=== PATIENT | male | born 1940 | race Hispanic/Latino ===

== ENCOUNTER 2019-08-07 14:58 | Emergency (ER) | payer MEDICARE | END 2019-08-07 16:16 | disposition home or self-care (01) | LOC: EDH 14:58 | DX: Z46.6 Encounter for fitting and adjustment of urinary device (principal); I10 Essential (primary) hypertension | CPT/HCPCS: 99281 ==

== ENCOUNTER 2019-09-08 06:29 | Observation (INO) | payer MEDICARE ==
[2019-09-05 11:25] VITALS: BP 127/80
[2019-09-05 12:30] LABS: BASOPHILS % (AUTO) 0.6 % (0.0-5.0); EOSINOPHILS % (AUTO) 1.1 % (0.0-8.0); HEMATOCRIT 39.5 % (42-54); LYMPHOCYTES % (AUTO) 18.2 % (21.0-51.0); MEAN CORPUSCULAR HEMOGLOBIN 29.8 pg (27.0-33.0); MEAN CORPUSCULAR HGB CONC 33.2 g/dL (32.0-36.0); MEAN CORPUSCULAR VOLUME 89.9 fL (79-99); MONOCYTES % (AUTO) 6.3 % (3.0-13.0); NEUTROPHILS % (AUTO) 73.8 % (40.0-77.0); PLATELET COUNT (AUTO) 262 K/uL (130-400); RED CELL DISTRIBUTION WIDTH 14.6 % (11.0-15.5); WHITE BLOOD COUNT (AUTO) 10.5 K/uL (4.8-10.8)
[2019-09-05 12:45] LABS: POTASSIUM 5.1 mmol/L (3.5-5.1)
[2019-09-05 12:49] LABS: INR 1.01 (0.85-1.15); PARTIAL THROMBOPLASTIN TIME 27.1 SEC (26.3-35.5); PROTHROMBIN TIME 10.6 SEC (9.6-11.6)
[2019-09-05 13:11] LABS: APPEARANCE,URINE TURBID (CLEAR); BILIRUBIN,URINE NEGATIVE (NEGATIVE); COLOR,URINE YELLOW (YELLOW); GLUCOSE, URINE (UA) NEGATIVE (NEGATIVE); KETONES,URINE NEGATIVE (NEGATIVE); LEUKOCYTE ESTERASE ,URINE LARGE (NEGATIVE); NITRATE,URINE POSITIVE (NEGATIVE); OCCULT BLOOD,URINE TRACE-INTACT (NEGATIVE); PH,URINE 8.5 (5.0-8.0); PROTEIN,URINE TRACE mg/dL (NEGATIVE)
[2019-09-05 13:34] LABS: BACTERIA,URINE Many /HPF (None Seen); SQUAMOUS EPITHELIAL CELL,UR Rare /HPF (0-2); WBC,URINE >100 /HPF (0-1)
[2019-09-05 13:35] LABS: AMORPHOUS SEDIMENT,UR Few /LPF (None Seen); MUCUS,URINE Few LPF (None Seen); TRIPLE PHOSPHATE CRYSTAL,UR Moderate /LPF (None Seen)
--- NOTE | 2019-09-07 15:20 | NUR ---
ABNORMAL LABS/EKG ABNORMAL UA, URINE CULTURE,CXR FAXED TO DR. QUEZADA'S OFFICE, ATTN TO ERLIN. WAITING STRATEGY INTERN BACK. ABNORMAL EKG REPORTED TO DR. MARTELL.
--- NOTE | 2019-09-07 15:28 | NUR ---
EKG NO FURTHER ORDERS FROM DR. MARTELL, MAY PROCEED WITH PLANNED PROCEDURE.
--- NOTE | 2019-09-07 15:56 | NUR ---
ABNORMAL LABS CALL BACK FROM DR. QUEZADA'S OFFICE. NO FURTHER ORDERS GIVEN. PT ON LEVAQUIN. MAY PROCEED WITH PLANNED PROCEDURE.
[2019-09-08] VITALS (22 sets, daily range): BP systolic 99–160; BP diastolic 49–89
[~2019-09-08] VITALS: Ht 166.4 cm; Wt 119.3 kg
[2019-09-08] MEDS: CEFTRIAXONE SODIUM 1 GM IVP SCH ×2 (05:00→08:50)
[2019-09-08] MEDS: GENTAMICIN SULFATE IV SCH ×2 (05:00→08:45)
[2019-09-08] MEDS: SODIUM CHLORIDE 0.9% IV SCH ×2 (05:00→08:45)
[~2019-09-08 06:29] MED LIST: ATOR10TA69 PO; ENAL2.5T PO; FURO20TA4 PO; LEVOFLOXACIN PO; METO25TA6 PO; POTA20TA82 PO; TAMS-1 PO
[2019-09-08] MEDS ORDERED: LACTATED RINGERS 1000ML 1,000 ML IV ONE (07:06)
[2019-09-08] MEDS ORDERED: GENTAMICIN 80 MG/NS 100 ML PB 0 ML IV ONE (07:06)
[2019-09-08] MEDS ORDERED: LIDOCAINE PF 2% 5ML ABBOJECT ONE (07:54)
[2019-09-08] MEDS ORDERED: PROPOFOL 10 MG/ML 20ML VIAL IV ONE (07:54)
[2019-09-08] MEDS ORDERED: FENTANYL CITRATE PF 50 MCG/1 ML 2ML VIAL ONE (07:54)
[2019-09-08] MEDS ORDERED: EPHEDRINE SULFATE 50 MG/ML AMPULE ONE (09:09)
[2019-09-08] MEDS ORDERED: PHENYLEPHRINE HCL 10 MG/ML 1ML VIAL IV ONE (09:44)
[2019-09-08] MEDS ORDERED: SODIUM CHLORIDE 0.9% 10 ML VIAL ONE (09:44)
[2019-09-08] MEDS ORDERED: ONDANSETRON HCL 4 MG/2 ML VIAL IVP PRN (11:45)
[2019-09-08] MEDS ORDERED: TRAMADOL HCL 50 MG TABLET PO PRN (11:45)
[2019-09-08] MEDS ORDERED: OPIUM/BELLADONNA ALKALOIDS 1 EACH SUPP.RECT RC PRN (11:45)
--- NOTE | 2019-09-08 18:27 | NUR ---
C/O OF SWOLLEN LEFT SIDE OF LIP CALLED OR TO MAKE DR QUEZADA AWARE, HE IS CURRENTLY IN SURGERY. ANESTHESIA TO COME AND SEE PATIENT. VITAL SIGNS ARE STABLE, NO SIGNS OF AIRWAY OBSTRUCTION.
[2019-09-08] MEDS: BACITRACIN 28.4 GM OINT TP SCH (21:14)
[2019-09-08] MEDS: DOCUSATE SODIUM 100 MG CAP PO SCH (21:14)
[2019-09-08] MEDS ORDERED: SODIUM CHLORIDE 0.9% 500ML 500 ML IV ONE (21:19)
[2019-09-09] VITALS: BP 118/61
[2019-09-09 04:11] VITALS: BP 107/59
[2019-09-09] MEDS: SODIUM CHLORIDE 0.9% IV SCH (05:00)
[2019-09-09] MEDS: GENTAMICIN SULFATE IV SCH (05:00)
[2019-09-09] MEDS: CEFTRIAXONE SODIUM 1 GM IVP SCH ×2 (05:00→15:24)
[2019-09-09 08:00] VITALS: BP 112/64
[2019-09-09] MEDS ORDERED: CEFTRIAXONE SODIUM 1 GM IVP SCH (08:00)
[2019-09-09] MEDS: BACITRACIN 28.4 GM OINT TP SCH (09:00)
[2019-09-09] MEDS ORDERED: PANTOPRAZOLE SODIUM 40 MG TABLET.DR PO SCH (09:00)
[2019-09-09] MEDS: DOCUSATE SODIUM 100 MG CAP PO SCH (10:25)
[2019-09-09 11:37] VITALS: BP 112/65
--- NOTE | 2019-09-09 16:13 | NUR ---
PT D/C SAFELY Pt cleared for d/c by Dr. Mcmahan, 3 way CBI clear with no hematuria or blood clot noted, 1gm Rocephin IVP given before d/c, pt tolerated well, No c/o pain, pt to follow up with Dr. Mcmahan on 09/12/19 @ 09:15am. [address] way CBI changed to a leg bag, Pt education provided on gaines care with aseptic technique, Pt verbalized understanding of d/c instruction, All questions and concerns answered. Pt finally d/c safely accompanied by family members.
== END 2019-09-09 16:15 | disposition home or self-care (01) ==
LOC: DAH 06:29 → 3BH 06:30 → DAH 06:30
PROVIDERS: ADMIT Urology; ATTEND Urology
DX: N40.1 Benign prostatic hyperplasia with lower urinary tract symptoms (principal); R33.8 Other retention of urine; I10 Essential (primary) hypertension; I25.10 Atherosclerotic heart disease of native coronary artery without angina pectoris; N21.0 Calculus in bladder; Z95.1 Presence of aortocoronary bypass graft
CPT/HCPCS: 36415; 52601; 71045; 80048; 81001; 85025; 85610; 85730; 87077; 87088; 87186; 88307; 93005; 96374; 96376; A4215; A4221; A4222; A4223 ×2; A4354; A4358; A4600; A4663; A4930; A6260; C1758; G0378 ×30; J0696 ×3; J1580 ×2; J2001; J2370; J2704; J3010; J3490; J7030; J7040; J7120; 96365

== ENCOUNTER 2021-11-17 06:50 | Emergency (ER) | payer MEDICARE ==
[~2021-11-17] VITALS: Ht 167.6 cm; Wt 115.7 kg
[~2021-11-17 06:50] MED LIST changes: -ENAL2.5T PO; +ENAL2.5T16 PO; -LEVOFLOXACIN PO; +POTA-202 PO; -POTA20TA82 PO
[2021-11-17] MEDS ORDERED: ORPHENADRINE CITRATE 30 MG/ML ML IV ONE (08:00)
[2021-11-17] MEDS ORDERED: KETOROLAC 15MG/ML VIAL (15MG/ML) IV ONE (08:00)
[2021-11-17] MEDS ORDERED: 0.9%NACL 1000ML 1,000 ML IV ONE (08:00)
[2021-11-17 08:25] LABS: BASOPHILS % (AUTO) 0.4 % (0.0-5.0); EOSINOPHILS % (AUTO) 0.8 % (0.0-8.0); HEMATOCRIT 40.1 % (42-54); LYMPHOCYTES % (AUTO) 24.8 % (21.0-51.0); MEAN CORPUSCULAR HEMOGLOBIN 30.9 pg (27.0-33.0); MEAN CORPUSCULAR HGB CONC 33.4 g/dL (32.0-36.0); MEAN CORPUSCULAR VOLUME 92.4 fL (79-99); NEUTROPHILS % (AUTO) 66.6 % (40.0-77.0); PLATELET COUNT (AUTO) 174 K/uL (130-400); RED BLOOD CELL COUNT(AUTO) 4.34 MIL/uL (4.50-6.20); RED CELL DISTRIBUTION WIDTH 13.1 % (11.0-15.5); WHITE BLOOD COUNT (AUTO) 7.4 K/uL (4.8-10.8)
[2021-11-17 08:29] LABS: APPEARANCE,URINE Cloudy (CLEAR); BILIRUBIN,URINE Negative (NEGATIVE); COLOR,URINE Yellow (YELLOW); GLUCOSE, URINE (UA) Negative (NEGATIVE); KETONES,URINE Negative (NEGATIVE); LEUKOCYTE ESTERASE ,URINE Large (NEGATIVE); NITRATE,URINE Positive (NEGATIVE); OCCULT BLOOD,URINE Negative (NEGATIVE); PH,URINE 7.5 (5.0-8.0); PROTEIN,URINE Negative (NEGATIVE)
[2021-11-17 08:33] LABS: CARBON DIOXIDE 27 mmol/L (21-32); CHLORIDE 104 mmol/L (101-111); CREATININE 0.9 mg/dL (0.5-1.5); GLOMERULAR FILTR. RATE CALC 86 mL/min (>60); GLUCOSE,RANDOM 103 mg/dL (70-105); POTASSIUM 3.9 mmol/L (3.5-5.1); SODIUM SERUM 138 mmol/L (136-145); UREA NITROGEN, BLOOD 18 mg/dL (7-18)
[2021-11-17 08:37] LABS: ALANINE AMINOTRANSFERASE 21 U/L (12-78); ALBUMIN 3.3 g/dL (3.5-5.0); ASPARTATE AMINOTRANSFERASE 18 U/L (10-37); BILIRUBIN,TOTAL 0.7 mg/dL (0.2-1.0); TOTAL PROTEIN, SERUM 7.2 g/dL (6.0-8.3)
[2021-11-17 08:41] LABS: LIPASE < 50 U/L (114-286)
[2021-11-17 09:01] LABS: BACTERIA,URINE Moderate /HPF (None Seen); SQUAMOUS EPITHELIAL CELL,UR Few /HPF (0-2); WBC,URINE 51-100 /HPF (0-1)
[2021-11-17 09:03] LABS: RBC,URINE None Seen /HPF (0-1)
[2021-11-17] MEDS ORDERED: CEFTRIAXONE 1G VIAL IVP ONE (09:30)
[2021-11-17] MEDS ORDERED: CEPH500B PO (09:53)
[2021-11-17] MEDS ORDERED: MELO7.5T12 PO (09:53)
[2021-11-17] MEDS ORDERED: ORPH-43 PO (09:53)
[2021-11-17] MEDS ORDERED: LIDOP TP (09:53)
[2021-11-17 10:07] VITALS: BP 173/82
== END 2021-11-17 10:15 | disposition home or self-care (01) ==
LOC: EDH 06:50
DX: N39.0 Urinary tract infection, site not specified (principal); M62.838 Other muscle spasm; E78.00 Pure hypercholesterolemia, unspecified; I10 Essential (primary) hypertension; Z79.1 Long term (current) use of non-steroidal anti-inflammatories (NSAID); Z79.899 Other long term (current) drug therapy
CPT/HCPCS: 36415; 74176; 80053; 81001; 83690; 84484; 85025; 87077; 87088; 87186; 93005; 93971; 96361; 96374; 96375; 99285; J0696; J1885; J2360; J7030

== ENCOUNTER 2022-08-12 07:56 | Inpatient (IN) | payer MEDICARE ==
[~2022-08-12] VITALS: Ht 167.6 cm; Wt 111.0 kg
[~2022-08-12 07:56] MED LIST changes: +CEPH500B PO; +LIDOP TP; +MELO7.5T12 PO; +ORPH-43 PO
[2022-08-12] MEDS ORDERED: ACETAMINOPHEN 500 MG TABLET ONE (08:15)
[2022-08-12 08:16] LABS: BASOPHILS % (AUTO) 0.2 % (0.0-5.0); HEMATOCRIT 40.1 % (42-54); LYMPHOCYTES % (AUTO) 7.4 % (21.0-51.0); MEAN CORPUSCULAR HEMOGLOBIN 30.8 pg (27.0-33.0); MEAN CORPUSCULAR HGB CONC 33.7 g/dL (32.0-36.0); MEAN CORPUSCULAR VOLUME 91.3 fL (79-99); MONOCYTES % (AUTO) 9.8 % (3.0-13.0); PLATELET COUNT (AUTO) 176 K/uL (130-400); RED BLOOD CELL COUNT(AUTO) 4.39 MIL/uL (4.50-6.20); RED CELL DISTRIBUTION WIDTH 13.4 % (11.0-15.5); WHITE BLOOD COUNT (AUTO) 14.5 K/uL (4.8-10.8)
[2022-08-12] MEDS ORDERED: ACETAMINOPHEN 500 MG TABLET PO ONE (08:30)
[2022-08-12 08:41] LABS: CREATININE 1.1 mg/dL (0.5-1.5); POTASSIUM 3.4 mmol/L (3.5-5.1)
[2022-08-12 08:45] LABS: INR 1.06 (0.85-1.15); PROTHROMBIN TIME 11.5 SEC (9.6-11.6)
[2022-08-12 08:46] LABS: ALBUMIN 3.1 g/dL (3.5-5.0); PARTIAL THROMBOPLASTIN TIME 31.9 SEC (26.3-35.5); TOTAL PROTEIN, SERUM 7.8 g/dL (6.0-8.3)
[2022-08-12 08:50] LABS: B-TYPE NATRIURETIC PEPTIDE 59 pg/mL (0-100)
[2022-08-12] MEDS ORDERED: POTASSIUM BICARB/CIT AC 25 MEQ TABLET.EFF PO STA (09:45)
[2022-08-12 10:42] LABS: APPEARANCE,URINE CLOUDY (CLEAR); BILIRUBIN,URINE NEGATIVE (NEGATIVE); COLOR,URINE YELLOW (YELLOW); GLUCOSE, URINE (UA) NEGATIVE (NEGATIVE); KETONES,URINE 10 mg/dL (NEGATIVE); LEUKOCYTE ESTERASE ,URINE 500 Leu/uL (NEGATIVE); NITRATE,URINE NEGATIVE (NEGATIVE); OCCULT BLOOD,URINE SMALL (NEGATIVE); PH,URINE 5.5 (5.0-8.0); PROTEIN,URINE 30 mg/dL (NEGATIVE); UROBILINOGEN,URINE 0.2 mg/dL (0.2-1.0)
[2022-08-12 10:45] LABS: BACTERIA,URINE FEW /HPF (None Seen); MUCUS,URINE RARE LPF (None Seen); SQUAMOUS EPITHELIAL CELL,UR RARE /HPF (0-2); WBC,URINE 26-50 /HPF (0-1)
[2022-08-12] MEDS: CEFTRIAXONE 1G VIAL IVP STA ×2 (13:22→13:32)
[2022-08-12] MEDS: AZITHROMYCIN 500MG+NS 250ML IVPB SCH (13:32)
[2022-08-12] MEDS: CEFTRIAXONE 1G VIAL IVP SCH (14:00)
[2022-08-12] MEDS ORDERED: AZITHROMYCIN 500MG+NS 250ML IVPB SCH (14:00)
[2022-08-12] MEDS ORDERED: ACETAMINOPHEN WITH CODEINE 1 TAB TAB PO PRN (14:30)
[2022-08-12] MEDS ORDERED: ACETAMINOPHEN 325 MG TAB PO PRN ×2 (14:30)
[2022-08-12] MEDS ORDERED: ONDANSETRON 4MG INJ IV PRN (14:30)
[2022-08-12] MEDS ORDERED: POTASSIUM CHLORIDE 20MEQ/100ML 100 ML IV PRN (14:30)
[2022-08-12] MEDS ORDERED: NITROGLYCERIN 0.4 MG SL TAB SL PRN (14:30)
[2022-08-12] MEDS ORDERED: LIDOCAINE HCL-MPF 1% 2ML VIAL IV PRN (14:30)
[2022-08-12] MEDS ORDERED: CEFTRIAXONE 1G VIAL IV SCH (14:30)
[2022-08-12] MEDS ORDERED: ZOLPIDEM TARTRATE 5 MG TAB PO PRN (14:30)
[2022-08-12] MEDS ORDERED: POTASSIUM CHLORIDE 10% ELIXIR 20 MEQ/15 ML UDCUP PO PRN (14:30)
[2022-08-12] MEDS ORDERED: GUAIFENESIN-DM 200/20 MG 10 ML PO PRN (14:30)
[2022-08-12] MEDS ORDERED: AZITHROMYCIN 500MG+NS 250ML 250 ML IV SCH (14:30)
[2022-08-12] MEDS ORDERED: MORPHINE 2 MG SYG IV PRN (14:30)
[2022-08-12] MEDS ORDERED: SODIUM CHLORIDE 3% FOR INHALATION 4 ML/AMP VIAL.NEB IH ONE (14:42)
[2022-08-12] MEDS ORDERED: ASPI-1197 PO (17:53)
[2022-08-12] MEDS ORDERED: CILO50TA PO (17:53)
[2022-08-12] MEDS ORDERED: ACETAMINOPHEN 325 MG TAB ONE (18:00)
[2022-08-12] MEDS: FAMOTIDINE 20MG TAB PO SCH (21:00)
[2022-08-12] MEDS ORDERED: FAMOTIDINE 20MG TAB ONE (21:31)
[2022-08-13] VITALS (7 sets, daily range): BP systolic 115–147; BP diastolic 67–73
[2022-08-13] MEDS ORDERED: ACETAMINOPHEN WITH CODEINE 1 TAB TAB ONE ×2 (02:00→12:57)
[2022-08-13] MEDS: FAMOTIDINE 20MG TAB PO SCH ×2 (09:53→20:50)
[2022-08-13] MEDS: ENOXAPARIN SODIUM 40 MG/0.4 ML SYRINGE SQ SCH (09:53)
[2022-08-13] MEDS: AZITHROMYCIN 500MG+NS 250ML IVPB SCH (12:58)
[2022-08-13] MEDS: ACETAMINOPHEN WITH CODEINE 1 TAB TAB PO PRN (12:58)
[2022-08-13] MEDS: CEFTRIAXONE 1G VIAL IVP SCH (12:58)
[2022-08-14] VITALS (9 sets, daily range): BP systolic 88–149; BP diastolic 55–81
[2022-08-14] MEDS ORDERED: ACETAMINOPHEN WITH CODEINE 1 TAB TAB ONE (03:38)
[2022-08-14] MEDS: ACETAMINOPHEN WITH CODEINE 1 TAB TAB PO PRN (03:39)
[2022-08-14] MEDS ORDERED: IPRATROPIUM/ALBUTEROL SULFATE 3 ML SOLUTION IH ONE (05:06)
[2022-08-14] MEDS: IPRATROPIUM/ALBUTEROL SULFATE 3 ML SOLUTION IH SCH ×4 (05:19→23:47)
[2022-08-14 05:26] LABS: BASOPHILS % (AUTO) 0.2 % (0.0-5.0); EOSINOPHILS % (AUTO) 0.5 % (0.0-8.0); HEMATOCRIT 39.7 % (42-54); LYMPHOCYTES % (AUTO) 9.3 % (21.0-51.0); MEAN CORPUSCULAR HEMOGLOBIN 30.7 pg (27.0-33.0); MEAN CORPUSCULAR HGB CONC 33.8 g/dL (32.0-36.0); MEAN CORPUSCULAR VOLUME 91.1 fL (79-99); MONOCYTES % (AUTO) 8.1 % (3.0-13.0); NEUTROPHILS % (AUTO) 81.1 % (40.0-77.0); PLATELET COUNT (AUTO) 181 K/uL (130-400); RED BLOOD CELL COUNT(AUTO) 4.36 MIL/uL (4.50-6.20); RED CELL DISTRIBUTION WIDTH 13.3 % (11.0-15.5); WHITE BLOOD COUNT (AUTO) 11.9 K/uL (4.8-10.8)
[2022-08-14 05:39] LABS: ALBUMIN 2.3 g/dL (3.5-5.0); POTASSIUM 3.5 mmol/L (3.5-5.1)
[2022-08-14] MEDS: FAMOTIDINE 20MG TAB PO SCH ×2 (08:17→21:21)
[2022-08-14] MEDS: ENOXAPARIN SODIUM 40 MG/0.4 ML SYRINGE SQ SCH (08:29)
[2022-08-14] MEDS ORDERED: METOPROLOL TARTRATE 1 MG/ML 5ML VIAL IV SCH (11:30)
[2022-08-14] MEDS ORDERED: FUROSEMIDE 20MG VIAL IV SCH (11:30)
[2022-08-14] MEDS: CILOSTAZOL 100 MG TAB PO SCH ×2 (11:31→21:21)
[2022-08-14] MEDS ORDERED: METOPROLOL TARTRATE 1 MG/ML 5ML VIAL IV ONE (11:40)
[2022-08-14] MEDS ORDERED: FUROSEMIDE 20MG VIAL ONE (11:41)
[2022-08-14] MEDS: AZITHROMYCIN 500MG+NS 250ML IVPB SCH (11:56)
[2022-08-14] MEDS ORDERED: METOPROLOL TARTRATE 1 MG/ML 5ML VIAL IV PRN (12:28)
[2022-08-14] MEDS ORDERED: PHARMACY COMMUNICATION MISC SCH (14:30)
[2022-08-14] MEDS ORDERED: DILTIAZEM 25MG INJ IVP ONE (14:30)
[2022-08-14] MEDS ORDERED: DILTIAZEM 125 MG/25 ML INJ 125 MG in 0.9%NACL 100ML 100 ML IV SCH (14:30)
[2022-08-14] MEDS ORDERED: AMIODARONE 900MG VIAL 150 MG in DEXTROSE 5%-WATER 100 ML IV ONE (14:45)
[2022-08-14] MEDS: CEFTRIAXONE 1G VIAL IVP SCH (14:54)
[2022-08-14] MEDS ORDERED: AMIODARONE 900MG VIAL 360 MG in DEXTROSE 5%-WATER 200 ML IV SCH (15:00)
[2022-08-14] MEDS ORDERED: IOHEXOL-350 75 ML VIAL IV ONE (16:00)
[2022-08-14] MEDS ORDERED: FUROSEMIDE 20 MG TABLET PO SCH (21:00)
[2022-08-14] MEDS: AMIODARONE 900MG VIAL 540 MG in DEXTROSE 5%-WATER 300 ML IV SCH (21:19)
[2022-08-14] MEDS: ENOXAPARIN SODIUM 120 MG/0.8ML SQ SCH (21:20)
[2022-08-14] MEDS: KCL 20 MEQ ERTAB PO SCH (21:21)
[2022-08-14] MEDS: METOPROLOL TARTRATE 25 MG TAB PO SCH (21:21)
[2022-08-14] MEDS: ATORVASTATIN 10 MG TABLET PO SCH (21:21)
[2022-08-14] MEDS: ENALAPRIL MALEATE 5 MG TAB PO SCH (21:22)
[2022-08-14] MEDS: FUROSEMIDE 20MG VIAL IV SCH (21:23)
[2022-08-15] VITALS (8 sets, daily range): BP systolic 87–123; BP diastolic 57–72
[2022-08-15 03:42] LABS: HEMATOCRIT 35.6 % (42-54); MEAN CORPUSCULAR HEMOGLOBIN 30.3 pg (27.0-33.0); MEAN CORPUSCULAR VOLUME 89.2 fL (79-99); RED BLOOD CELL COUNT(AUTO) 3.99 MIL/uL (4.50-6.20); RED CELL DISTRIBUTION WIDTH 13.5 % (11.0-15.5); WHITE BLOOD COUNT (AUTO) 15.2 K/uL (4.8-10.8)
[2022-08-15 03:59] LABS: ALBUMIN 1.9 g/dL (3.5-5.0); CREATININE 0.9 mg/dL (0.5-1.5); POTASSIUM 3.1 mmol/L (3.5-5.1); TOTAL PROTEIN, SERUM 6.4 g/dL (6.0-8.3)
[2022-08-15] MEDS: KCL 20 MEQ ERTAB PO PRN (05:20)
[2022-08-15] MEDS: FUROSEMIDE 20MG VIAL IV SCH ×3 (05:20→22:23)
[2022-08-15] MEDS: IPRATROPIUM/ALBUTEROL SULFATE 3 ML SOLUTION IH SCH ×4 (06:32→23:44)
[2022-08-15] MEDS ORDERED: KCL 20 MEQ ERTAB PO ONE (08:30)
[2022-08-15] MEDS ORDERED: APIX5TAB PO (08:31)
[2022-08-15] MEDS ORDERED: ASPIRIN 81MG CHEW TAB PO SCH (09:00)
[2022-08-15] MEDS ORDERED: METOPROLOL TARTRATE 25 MG TAB PO SCH ×2 (09:00→21:00)
[2022-08-15] MEDS: METOPROLOL TARTRATE 25 MG TAB PO SCH (10:03)
[2022-08-15] MEDS: CILOSTAZOL 100 MG TAB PO SCH ×2 (10:03→20:26)
[2022-08-15] MEDS: KCL 20 MEQ ERTAB PO SCH ×2 (10:03→20:27)
[2022-08-15] MEDS: FAMOTIDINE 20MG TAB PO SCH ×2 (10:04→20:26)
[2022-08-15] MEDS: ENALAPRIL MALEATE 5 MG TAB PO SCH ×2 (10:04→20:27)
[2022-08-15] MEDS: ENOXAPARIN SODIUM 120 MG/0.8ML SQ SCH (10:06)
[2022-08-15] MEDS: CEFTRIAXONE 1G VIAL IVP SCH (13:28)
[2022-08-15] MEDS: LEVOFLOXACIN 500 MG TABLET PO SCH (14:24)
[2022-08-15] MEDS: AMIODARONE 900MG VIAL 540 MG in DEXTROSE 5%-WATER 300 ML IV SCH (15:37)
[2022-08-15] MEDS: METOPROLOL TARTRATE 50 MG TAB PO SCH (20:27)
[2022-08-15] MEDS: ATORVASTATIN 10 MG TABLET PO SCH (20:28)
[2022-08-15] MEDS: APIXABAN 5 MG TABLET PO SCH (20:28)
[2022-08-15] MEDS: AMIODARONE 200 MG TABLET PO SCH (20:29)
[2022-08-16] VITALS (11 sets, daily range): BP systolic 93–116; BP diastolic 56–67
[2022-08-16 03:55] LABS: ALBUMIN 1.7 g/dL (3.5-5.0); MAGNESIUM 1.8 mg/dL (1.80-2.40); POTASSIUM 3.5 mmol/L (3.5-5.1); TOTAL PROTEIN, SERUM 6.1 g/dL (6.0-8.3)
[2022-08-16 04:00] LABS: BASOPHILS % (AUTO) 0.2 % (0.0-5.0); EOSINOPHILS % (AUTO) 0.4 % (0.0-8.0); LYMPHOCYTES % (AUTO) 9.5 % (21.0-51.0); MEAN CORPUSCULAR HEMOGLOBIN 30.4 pg (27.0-33.0); MEAN CORPUSCULAR HGB CONC 33.3 g/dL (32.0-36.0); MEAN CORPUSCULAR VOLUME 91.1 fL (79-99); MONOCYTES % (AUTO) 11.5 % (3.0-13.0); NEUTROPHILS % (AUTO) 77.5 % (40.0-77.0); PLATELET COUNT (AUTO) 226 K/uL (130-400); RED BLOOD CELL COUNT(AUTO) 3.95 MIL/uL (4.50-6.20); RED CELL DISTRIBUTION WIDTH 13.7 % (11.0-15.5); WHITE BLOOD COUNT (AUTO) 16.1 K/uL (4.8-10.8)
[2022-08-16] MEDS: MAGNESIUM OXIDE 400 MG TABLET PO SCH ×3 (04:58→20:58)
[2022-08-16] MEDS: FUROSEMIDE 20MG VIAL IV SCH ×3 (04:59→21:00)
[2022-08-16] MEDS: IPRATROPIUM/ALBUTEROL SULFATE 3 ML SOLUTION IH SCH ×4 (06:15→23:47)
[2022-08-16] MEDS: ENALAPRIL MALEATE 5 MG TAB PO SCH ×2 (08:08→20:58)
[2022-08-16] MEDS: FAMOTIDINE 20MG TAB PO SCH ×2 (08:09→20:59)
[2022-08-16] MEDS: CILOSTAZOL 100 MG TAB PO SCH ×2 (08:09→20:59)
[2022-08-16] MEDS: KCL 20 MEQ ERTAB PO SCH ×2 (08:09→20:59)
[2022-08-16] MEDS: LEVOFLOXACIN 500 MG TABLET PO SCH (08:09)
[2022-08-16] MEDS: METOPROLOL TARTRATE 50 MG TAB PO SCH ×2 (08:09→20:59)
[2022-08-16] MEDS: AMIODARONE 200 MG TABLET PO SCH (08:09)
[2022-08-16] MEDS: APIXABAN 5 MG TABLET PO SCH ×2 (08:09→21:00)
[2022-08-16] MEDS: AMIODARONE 900MG VIAL 540 MG in DEXTROSE 5%-WATER 300 ML IV SCH (09:27)
[2022-08-16] MEDS: ATORVASTATIN 10 MG TABLET PO SCH (20:58)
[2022-08-16] MEDS ORDERED: ACETAMINOPHEN WITH CODEINE 1 TAB TAB PO PRN ×2 (21:00)
[2022-08-17 04:00] VITALS: BP 100/52
[2022-08-17 04:45] LABS: HEMATOCRIT 33.3 % (42-54); MEAN CORPUSCULAR HEMOGLOBIN 30.2 pg (27.0-33.0); MEAN CORPUSCULAR HGB CONC 33.3 g/dL (32.0-36.0); MEAN CORPUSCULAR VOLUME 90.5 fL (79-99); RED BLOOD CELL COUNT(AUTO) 3.68 MIL/uL (4.50-6.20); WHITE BLOOD COUNT (AUTO) 14.2 K/uL (4.8-10.8)
[2022-08-17] MEDS: AMIODARONE 900MG VIAL 540 MG in DEXTROSE 5%-WATER 300 ML IV SCH (04:51)
[2022-08-17 05:02] LABS: ALBUMIN 1.6 g/dL (3.5-5.0); POTASSIUM 3.3 mmol/L (3.5-5.1)
[2022-08-17] MEDS: FUROSEMIDE 20MG VIAL IV SCH (05:47)
[2022-08-17] MEDS: KCL 20 MEQ ERTAB PO PRN (05:48)
[2022-08-17] MEDS: IPRATROPIUM/ALBUTEROL SULFATE 3 ML SOLUTION IH SCH ×4 (06:38→23:24)
[2022-08-17] MEDS: KCL 20 MEQ ERTAB PO SCH ×2 (07:27→21:11)
[2022-08-17] MEDS ORDERED: KCL 20 MEQ ERTAB PO ONE (07:30)
[2022-08-17] MEDS ORDERED: FUROSEMIDE 40MG VIAL IV SCH (07:30)
[2022-08-17] MEDS: MAGNESIUM OXIDE 400 MG TABLET PO SCH ×2 (07:36→21:11)
[2022-08-17] MEDS: METOPROLOL TARTRATE 50 MG TAB PO SCH ×2 (07:36→21:12)
[2022-08-17] MEDS: APIXABAN 5 MG TABLET PO SCH ×2 (07:36→21:11)
[2022-08-17] MEDS: FAMOTIDINE 20MG TAB PO SCH ×2 (07:37→21:10)
[2022-08-17] MEDS: ENALAPRIL MALEATE 5 MG TAB PO SCH ×2 (07:37→21:11)
[2022-08-17] MEDS: CILOSTAZOL 100 MG TAB PO SCH ×2 (07:37→21:12)
[2022-08-17] MEDS: AMIODARONE 200 MG TABLET PO SCH ×3 (07:37→21:12)
[2022-08-17 08:29] VITALS: BP 100/58
[2022-08-17 12:56] VITALS: BP 118/60
[2022-08-17 16:25] VITALS: BP 105/53
[2022-08-17 20:25] VITALS: BP 109/54
[2022-08-17] MEDS: FUROSEMIDE 40MG VIAL IV SCH (21:12)
[2022-08-17] MEDS: ATORVASTATIN 10 MG TABLET PO SCH (21:12)
[2022-08-17 23:00] VITALS: BP 111/64
[2022-08-18 03:29] LABS: BASOPHILS % (AUTO) 0.2 % (0.0-5.0); EOSINOPHILS % (AUTO) 1.6 % (0.0-8.0); HEMATOCRIT 33.1 % (42-54); LYMPHOCYTES % (AUTO) 9.8 % (21.0-51.0); MEAN CORPUSCULAR HEMOGLOBIN 30.4 pg (27.0-33.0); MEAN CORPUSCULAR HGB CONC 33.5 g/dL (32.0-36.0); MEAN CORPUSCULAR VOLUME 90.7 fL (79-99); MONOCYTES % (AUTO) 12.2 % (3.0-13.0); PLATELET COUNT (AUTO) 285 K/uL (130-400); RED BLOOD CELL COUNT(AUTO) 3.65 MIL/uL (4.50-6.20); RED CELL DISTRIBUTION WIDTH 14.2 % (11.0-15.5); WHITE BLOOD COUNT (AUTO) 13.1 K/uL (4.8-10.8)
[2022-08-18 03:45] LABS: POTASSIUM 3.5 mmol/L (3.5-5.1)
[2022-08-18 04:21] VITALS: BP 107/62
[2022-08-18] MEDS: IPRATROPIUM/ALBUTEROL SULFATE 3 ML SOLUTION IH SCH ×2 (06:30→11:14)
[2022-08-18 07:29] VITALS: BP 122/71
[2022-08-18] MEDS: FAMOTIDINE 20MG TAB PO SCH (08:15)
[2022-08-18] MEDS: CILOSTAZOL 100 MG TAB PO SCH (08:15)
[2022-08-18] MEDS: AMIODARONE 200 MG TABLET PO SCH (08:15)
[2022-08-18] MEDS: METOPROLOL TARTRATE 50 MG TAB PO SCH (08:15)
[2022-08-18] MEDS: ENALAPRIL MALEATE 5 MG TAB PO SCH (08:16)
[2022-08-18] MEDS: KCL 20 MEQ ERTAB PO SCH (08:16)
[2022-08-18] MEDS: APIXABAN 5 MG TABLET PO SCH (08:16)
[2022-08-18] MEDS: FUROSEMIDE 40MG VIAL IV SCH (08:17)
[2022-08-18] MEDS ORDERED: FUROSEMIDE 20 MG TABLET PO SCH (09:45)
[2022-08-18 11:47] VITALS: BP 132/70
[2022-08-18 15:39] VITALS: BP 147/82
[2022-08-19] MEDS ORDERED: LEVOFLOXACIN 500 MG TABLET PO SCH (09:00)
[2022-08-19] MEDS ORDERED: FUROSEMIDE 40 MG TABLET PO SCH (09:00)
== END 2022-08-18 16:00 | DRG 871 ==
LOC: EDH 07:56 → OBSVTOIN 13:09 → UNDOADMOB 13:09 → INTOOBSV 13:09 → EDHIP 13:09 → OBSVTOIN 13:36 → 3DH 08-13 01:38 → 2AH 08-14 15:03
PROVIDERS: ADMIT Hospitalist; ATTEND Hospitalist
DX: A41.9 Sepsis, unspecified organism (principal); J96.01 Acute respiratory failure with hypoxia; N39.0 Urinary tract infection, site not specified; E87.1 Hypo-osmolality and hyponatremia; I47.1 Supraventricular tachycardia; I48.92 Unspecified atrial flutter; J90 Pleural effusion, not elsewhere classified; E78.00 Pure hypercholesterolemia, unspecified; E87.6 Hypokalemia; G47.00 Insomnia, unspecified; I10 Essential (primary) hypertension; I25.10 Atherosclerotic heart disease of native coronary artery without angina pectoris; K59.00 Constipation, unspecified; Z20.822 Contact with and (suspected) exposure to COVID-19; Z79.01 Long term (current) use of anticoagulants; Z79.02 Long term (current) use of antithrombotics/antiplatelets; Z79.899 Other long term (current) drug therapy; Z95.1 Presence of aortocoronary bypass graft; Z87.891 Personal history of nicotine dependence
CPT/HCPCS: 36415; 71045; 71270; 74177; 80048; 80053; 81001; 83605; 83735; 83880; 84484; 85025; 85027; 85610; 85730; 86738; 87040; 87071; 87077; 87088; 87186; 87205; 87449; 87635; 87804; 87880; 93005; 93306; 94640; 94664; 94760; 97039; C9803; G0378; J0282; J0456; J0696; J1650; J1940; J3490; J7060; Q9967

== ENCOUNTER 2022-09-13 07:27 | Emergency (ER) | payer MEDICARE ==
[~2022-09-13] VITALS: Ht 167.6 cm; Wt 110.2 kg
[~2022-09-13 07:27] MED LIST changes: +APIX5TAB PO; +ASPI-1197 PO; -CEPH500B PO; +CILO50TA PO; -LIDOP TP; -MELO7.5T12 PO; -METO25TA6 PO; -ORPH-43 PO; -TAMS-1 PO
[2022-09-13] MEDS ORDERED: AMIO200T68 PO (08:04)
[2022-09-13] MEDS ORDERED: METO50TA18 PO (08:04)
[2022-09-13] MEDS ORDERED: IPRA3AMP24 IH (08:04)
[2022-09-13] MEDS ORDERED: NITR0.4T50 SL (08:04)
[2022-09-13] MEDS ORDERED: ACET325T51 PO (08:04)
[2022-09-13] MEDS ORDERED: ONDA4TAB10 PO (08:04)
[2022-09-13] MEDS ORDERED: DOCU-116 PO (08:04)
[2022-09-13] MEDS ORDERED: GUAI5LIQ13 PO (08:04)
[2022-09-13] MEDS ORDERED: LIDOCAINE HCL 2% VISCOUS 15 ML UDCUP ONE (08:28)
[2022-09-13 08:29] LABS: BASOPHILS % (AUTO) 0.4 % (0.0-5.0); EOSINOPHILS % (AUTO) 4.2 % (0.0-8.0); HEMATOCRIT 32.9 % (42-54); LYMPHOCYTES % (AUTO) 36.7 % (21.0-51.0); MEAN CORPUSCULAR HEMOGLOBIN 29.9 pg (27.0-33.0); MEAN CORPUSCULAR HGB CONC 32.5 g/dL (32.0-36.0); MEAN CORPUSCULAR VOLUME 91.9 fL (79-99); MONOCYTES % (AUTO) 7.5 % (3.0-13.0); NEUTROPHILS % (AUTO) 50.8 % (40.0-77.0); PLATELET COUNT (AUTO) 235 K/uL (130-400); RED BLOOD CELL COUNT(AUTO) 3.58 MIL/uL (4.50-6.20); RED CELL DISTRIBUTION WIDTH 14.2 % (11.0-15.5); WHITE BLOOD COUNT (AUTO) 6.9 K/uL (4.8-10.8)
[2022-09-13] MEDS ORDERED: CEFA-62 PO (08:38)
[2022-09-13] MEDS ORDERED: TRAM50TA2 PO (08:38)
[2022-09-13 08:43] VITALS: BP 122/62
[2022-09-13 08:54] LABS: INR 1.06 (0.85-1.15); PROTHROMBIN TIME 11.5 SEC (9.6-11.6)
[2022-09-13 08:56] LABS: PARTIAL THROMBOPLASTIN TIME 30.5 SEC (26.3-35.5)
[2022-09-13 09:30] LABS: ALBUMIN 2.1 g/dL (3.5-5.0)
== END 2022-09-13 08:45 | disposition home or self-care (01) ==
LOC: EDH 07:27
DX: R04.0 Epistaxis (principal); E78.00 Pure hypercholesterolemia, unspecified; I10 Essential (primary) hypertension; Z79.01 Long term (current) use of anticoagulants; Z79.82 Long term (current) use of aspirin; Z95.1 Presence of aortocoronary bypass graft
CPT/HCPCS: 30901; 36415; 80053; 85025; 85610; 85730; 93005